=== PATIENT | female | born 1975 | race Caucasian/White ===

== ENCOUNTER 2020-03-04 16:16 | Emergency (ER) | payer BC, OTHER ==
[2020-03-04] MEDS ORDERED: Lidocaine 1% 10 ML MDV INJECT ONE (16:42)
--- NOTE | 2020-03-04 17:21 | EDM.PDOC ---
ED HPI GENERAL MEDICAL PROBLEM - General Chief Complaint: Laceration Stated Complaint: LT TOE LACERATION Time Seen by Provider: 03/04/20 16:28 Source of Information: Reports: Patient History Limitations: Reports: No Limitations - History of Present Illness INITIAL COMMENTS - FREE TEXT/NARRATIVE: The patient presents with a left great toe injury. She was at work and they were moving some equipment and a heavy bar fell and hit her on the left great toe. She has a laceration to the top of her left great toe. She has good sensation and capillary refill distally. Her tetanus was about 5 years ago. Onset: Sudden Duration: Minutes: Location: Reports: Lower Extremity, Left (Great toe) Quality: Reports: Sharp Severity: Moderate Improves with: Reports: None Worsens with: Reports: None Associated Symptoms: Reports: No Other Symptoms Left Toe-Long Pain Score (Numeric/FACES): 7 - Related Data Allergies Allergy/AdvReac Type Severity Reaction Status Date / Time No Known Allergies Allergy Verified 03/04/20 16:33 Past Medical History Cardiovascular History: Reports: Hypertension Respiratory History: Reports: Asthma Social & Family History - Tobacco Use Tobacco Use Status *Q: Never Tobacco User Second Hand Smoke Exposure: No - Caffeine Use Caffeine Use: Reports: Coffee - Recreational Drug Use Recreational Drug Use: No ED ROS GENERAL - Review of Systems Review Of Systems: See Below Constitutional: Reports: No Symptoms HEENT: Reports: No Symptoms Respiratory: Reports: No Symptoms Cardiovascular: Reports: No Symptoms Endocrine: Reports: No Symptoms GI/Abdominal: Reports: No Symptoms : Reports: No Symptoms Musculoskeletal: Reports: Other (Left great toe injury) ED EXAM, SKIN/RASH Exam: See Below Exam Limited By: No Limitations General Appearance: Alert, No Apparent Distress Ears: Normal External Exam Nose: Normal Inspection Head: Atraumatic, Normocephalic Respiratory/Chest: No Respiratory Distress Extremities: Other (Pain upon palpation to her left great toe with a 2cm laceration to the top of the toe. Good sensation and capillary refill distally.) ED SKIN PROCEDURES - Laceration/Wound Repair Left Toe - Great Appearance: Superficial, Linear Distal NVT: Neuro & Vascular Intact, No Tendon Injury Anesthetic Type: Local Local Anesthesia - Lidocaine (Xylocaine): 1% Plain Skin Prep: Saline Exploration/Debridement/Repair: Wound Explored, In a Bloodless Field, Explored to Base Closed with: Sutures Lac/Wound length In cm: 2 Suture Size: 4-0 # of Sutures: 2 Suture Type: Nylon, Interrupted, Simple Tetanus Status Addressed: Yes Complications: No Course - Vital Signs Last Recorded V/S: Last Vital Signs Temp 97.4 F 03/04/20 16:29 Pulse 93 03/04/20 16:29 Resp 18 03/04/20 16:29 BP 174/98 H 03/04/20 16:29 Pulse Ox 96 03/04/20 16:29 - Orders/Labs/Meds Orders: Active Orders 24 hr Category Date Time Status Toes Great Toe Lt TA [CR] Stat Exams 03/04/20 16:42 Taken Meds: Medications Discontinued Medications Generic Name Dose Route Start Last Admin Trade Name Freq PRN Reason Stop Dose Admin Lidocaine HCl 10 ml 03/04/20 16:42 03/04/20 17:07 Xylocaine 1% INJECT 03/04/20 16:43 10 ml ONETIME ONE Administration - Re-Assessments/Exams Free Text/Narrative Re-Assessment/Exam: 03/04/20 17:22 I ordered an x-ray of his toe. 03/04/20 17:51 There is no fracture. I sutured he laceration. Departure - Departure Time of Disposition: 18:00 Disposition: Home, Self-Care 01 Condition: Good Clinical Impression: Laceration of left great toe Qualifiers: Encounter type: initial encounter Damage to nail status: without damage Foreign body presence: without foreign body Qualified Code(s): S91.112A - Laceration without foreign body of left great toe without damage to nail, initial encounter - Discharge Information *PRESCRIPTION DRUG MONITORING PROGRAM REVIEWED*: Not Applicable *COPY OF PRESCRIPTION DRUG MONITORING REPORT IN PATIENT PITA: Not Applicable Referrals: Domi Hooks MD [Primary Care Provider] - 1 Week Forms: ED Department Discharge Additional Instructions: Soak your toe in warm soapy water 2 times per day and apply antibiotic ointment after. Have the sutures removed within a week. Look for any signs of infection such as redness, swelling, pain, or drainage. If you see any of these signs please return or see your doctor, you may need oral antibiotics. Sepsis Event Note (ED) - Evaluation Sepsis Screening Result: No Definite Risk - Focused Exam Vital Signs: Vital Signs Temp Pulse Resp BP Pulse Ox 03/04/20 16:29 97.4 F 93 18 174/98 H 96 - My Orders Last 24 Hours: My Active Orders 03/04/20 16:42 Toes Great Toe Lt TA [CR] Stat - Assessment/Plan Last 24 Hours: My Active Orders 03/04/20 16:42 Toes Great Toe Lt TA [CR] Stat
--- NOTE | 2020-03-05 09:11 | CR ---
PROCEDURE INFORMATION: Exam: XR Left Toe(s) Exam date and time: 03/04/2020 5:10 PM Age: 44 years old Clinical indication: Pain; Other: Great toe; Patient HX: Dropped heavy bar on toe, laceration TECHNIQUE: Imaging protocol: XR Left toes. Views: Minimum 2 views. COMPARISON: No relevant prior studies available. FINDINGS: Bones/joints: Small probable bone island 1st distal phalanx. No fracture. Soft tissues: Normal. IMPRESSION: No acute process Thank you for allowing us to participate in the care of your patient. Dictated and Authenticated by: Kai Hayden MD 03/04/2020 7:06 PM Central Time ([place] & [place]) SUGEY
== END 2020-03-04 18:04 | disposition home or self-care (01) ==
LOC: JD.ED 16:16
DX: S91.112A Laceration without foreign body of left great toe without damage to nail, initial encounter (principal); I10 Essential (primary) hypertension; J45.909 Unspecified asthma, uncomplicated; W20.8XXA Other cause of strike by thrown, projected or falling object, initial encounter; Y92.89 Other specified places as the place of occurrence of the external cause; Y99.0 Civilian activity done for income or pay
CPT/HCPCS: 12001; 73660; 99283; J2001; 99282

== ENCOUNTER 2021-03-03 08:18 | Day surgery (SDC) | payer BC, OTHER ==
--- NOTE | 2021-02-28 12:00 | PCM.PREANE ---
Preanesthetic Assessment - Procedure Proposed Procedure: EGD and Colonoscopy - Anesthesia/Transfusion/Family Hx Anesthesia History: Prior Anesthesia Without Reaction Family History of Anesthesia Reaction: No Transfusion History: No Prior Transfusion(s) Intubation History: Unknown - Review of Systems General: No Symptoms Pulmonary: No Symptoms (Former smoker: 1/2 ppd times 30 years, quit 2016/ [facility]- no CPAP since machine has been recalled since December 2020.), Cough (chronic) Cardiovascular: No Symptoms (HTN) Gastrointestinal: No Symptoms Neurological: No Symptoms Other: Reports: None - Physical Assessment NPO Status Date: 03/02/21 NPO Status Time: 23:00 Vital Signs: HR: 95 Sat: 96% B/P: 168/99 Temp: 98.1 Resp: 16 Height: 1.65 m Weight: 113 kg ASA Class: 3 Mental Status: Alert & Oriented x3 Airway Class: Mallampati = 2 Dentition: Reports: Normal Dentition, Caries Thyro-Mental Finger Breadths: 3 Mouth Opening Finger Breadths: 3 ROM/Head Extension: Full Lungs: Clear to Auscultation, Normal Respiratory Effort Cardiovascular: Regular Rate, Regular Rhythm, No Murmurs - Lab Values: All labs reviewed and noted and within acceptable ranges to proceed with scheduled procedure. - Allergies Allergies/Adverse Reactions: Allergies Allergy/AdvReac Type Severity Reaction Status Date / Time No Known Allergies Allergy Verified 03/03/21 09:02 - Anesthesia Plan Pre-Op Medication Ordered: None - Acknowledgements Anesthesia Type Planned: MAC Pt an Appropriate Candidate for the Planned Anesthesia: Yes Alternatives and Risks of Anesthesia Discussed w Pt/Guardian: Yes Pt/Guardian Understands and Agrees with Anesthesia Plan: Yes PreAnesthesia Questionnaire Cardiovascular History: Reports: Hypertension Respiratory History: Reports: Asthma - HOME MEDS Home Medications: Home Meds Hydrochlorothiazide/Losartan [Hyzaar 50-12.5 MG] 1 tab PO DAILY 02/28/21 [History] Lysine 500 mg PO DAILY 02/28/21 [History] Multivitamin [Multi-Day Vitamins] 1 tab PO DAILY 02/28/21 [History] - CURRENT (IN HOUSE) MEDS Current Meds: Current Medications Lactated Ringer's (Ringers, Lactated) 1,000 mls @ 125 mls/hr IV ASDIRECTED TRAVIS Stop: 03/03/21 23:00 Lidocaine/Sodium Bicarbonate (Lidocaine 1%/Sod Bicarbonate In Ns 8.4% 1 Ml Syringe) 0.25 ml IDERM ONETIME PRN PRN Reason: Prior to IV Start Stop: 03/03/21 18:00 Sodium Chloride (Sodium Chloride 0.9% 10 Ml Syringe) 10 ml FLUSH ASDIRECTED PRN PRN Reason: Keep Vein Open Stop: 03/03/21 18:00 Discontinued Medications Lactated Ringer's (Ringers, Lactated) 1,000 mls @ 125 mls/hr IV ASDIRECTED TRAVIS Stop: 02/24/21 23:00 Lidocaine/Sodium Bicarbonate (Lidocaine 1%/Sod Bicarbonate In Ns 8.4% 1 Ml Syringe) 0.25 ml IDERM ONETIME PRN PRN Reason: Prior to IV Start Stop: 02/24/21 18:00 Sodium Chloride (Sodium Chloride 0.9% 10 Ml Syringe) 10 ml FLUSH ASDIRECTED PRN PRN Reason: Keep Vein Open Stop: 02/24/21 18:00
[~2021-03-03 08:18] MED LIST: Lactated Ringers 1,000 ML IV SCH; Lidocaine 1%/Sod Bicarbonate in NS 8.4% 1 ML Syringe IDERM PRN; Propofol 200 MG/20 ML SDV ONE; Sodium Chloride 0.9% 10 ML Syringe FLUSH PRN
[2021-03-03] MEDS ORDERED: Propofol 200 MG/20 ML SDV ONE ×2 (09:13→11:31)
[2021-03-03] MEDS ORDERED: fentaNYL 100 MCG/2 ML SDV ONE (09:14)
[2021-03-03] MEDS ORDERED: Midazolam 1 MG/ML 2 ML SDV ONE (09:14)
[2021-03-03] MEDS ORDERED: Lidocaine 1% 4 ML ONE (11:10)
--- NOTE | 2021-03-03 12:11 | PCM48HPAN ---
Post Anesthesia Note - EVALUATION WITHIN 48HRS OF ANESTHETIC Vital Signs in Normal Range: Yes Patient Participated in Evaluation: Yes Respiratory Function Stable: Yes Airway Patent: Yes Cardiovascular Function Stable: Yes Hydration Status Stable: Yes Pain Control Satisfactory: Yes Nausea and Vomiting Control Satisfactory: Yes Mental Status Recovered: Yes Vital Signs: Last Vital Signs Temp 98.1 F 03/03/21 08:30 Pulse 95 03/03/21 08:30 Resp 16 03/03/21 08:30 BP 168/85 H 03/03/21 08:30 Pulse Ox 95 03/03/21 08:30 1204 155/83 72 16 98.4 96%
--- NOTE | 2021-03-03 12:23 | PROC ---
DATE OF OPERATION: 03/03/2021 SURGEON: Elbert Multani MD PREOPERATIVE DIAGNOSIS: Iron deficiency anemia. POSTOPERATIVE DIAGNOSES: 1. LA grade A esophagitis. 2. Two small polyps. 3. Small anal fissure. OPERATION PERFORMED: 1. Esophagogastroduodenoscopy. 2. Colonoscopy. ANESTHESIA: Monitored anesthesia care. COMPLICATIONS: None. ESTIMATED BLOOD LOSS: Minimal. INDICATION AND CONSENT: Opal is 45. She has been having some iron deficiency anemia that is of unknown etiology. Concern was raised about a possible GI source and the patient was evaluated. She was offered EGD and colonoscopy. Risks, benefits, and alternatives for the procedure were discussed with the patient. Informed consent was obtained. DESCRIPTION OF PROCEDURE: The patient was taken to the procedure room, placed in left lateral decubitus position. Monitored anesthesia care was induced and the procedure was began after placing a bite block and time-out was performed. Scope was inserted into the mouth and taken all the way to the second portion of the duodenum which was normal. First portion of duodenum was normal. Duodenal bulb also was normal. The antrum appeared normal, so was the entire stomach. On retroflexion, there was no hiatal hernia. GE junction was at 39 cm, and appeared to have LA grade A esophagitis. Biopsies were taken here with cold forceps for pathologic exam. EBL was minimal. The entirety of the esophagus was otherwise normal. Of note, there was mild amount of bile within the stomach body. This was suctioned out. No other abnormalities were found. Air was suctioned out and this part of the procedure was concluded. Next, we paid attention to colonoscopy. Perianal examination was significant for a small anal fissure in the posterior aspect of the anal opening. Then, digital rectal exam was normal. Scope was inserted and taken all the way to the cecum. Appendiceal orifice and ileocecal valve were photographed. Prep was good. There was a small flat polypoid-like tissue in the proximal ascending colon. This was removed with cold forceps. EBL was minimal. Then, there was another small semi-pedunculated polyp in the upper rectum that was removed with cold forceps as well. EBL was minimal. Otherwise, the entirety of the exam was normal. On retroflexion, there were no significant hemorrhoids. Air was suctioned out from the rectum and this part of the procedure was concluded. Therefore, from these procedures, there was no obvious source of gastrointestinal bleeding. The patient will be allowed to return home and come back in clinic in 2 weeks for postop visit. TAYLER /[id number]
== END 2021-03-03 12:50 | disposition home or self-care (01) ==
LOC: JD.SDS 08:18
PROVIDERS: ATTEND Surgery
DX: D12.2 Benign neoplasm of ascending colon (principal); D50.9 Iron deficiency anemia, unspecified; K20.90 Esophagitis, unspecified without bleeding; K31.7 Polyp of stomach and duodenum; K60.2 Anal fissure, unspecified; I10 Essential (primary) hypertension; G47.33 Obstructive sleep apnea (adult) (pediatric); E66.09 Other obesity due to excess calories; Z98.890 Other specified postprocedural states; Z87.891 Personal history of nicotine dependence; Z68.41 Body mass index [BMI] 40.0-44.9, adult
CPT/HCPCS: 00813; J2250; J2704; J3010; J7120